=== PATIENT | female | born 1965 | race Caucasian/White ===

== ENCOUNTER 2020-11-12 14:21 | Emergency (ER) | payer BC | END 2020-11-12 17:55 | disposition home or self-care (01) | LOC: CSHERS 14:21 | DX: S22.038A Other fracture of third thoracic vertebra, initial encounter for closed fracture (principal); K21.9 Gastro-esophageal reflux disease without esophagitis; E78.5 Hyperlipidemia, unspecified; Z87.891 Personal history of nicotine dependence; Z79.899 Other long term (current) drug therapy; X50.9XXA Other and unspecified overexertion or strenuous movements or postures, initial encounter | CPT/HCPCS: 72125; 72128 ==